=== PATIENT | male | born 1945 | race Caucasian/White ===

== ENCOUNTER → 2018-02-21 11:56 | Outpatient (CLI) | payer MEDICARE, SELFPAY ==
--- NOTE | 2018-02-21 | DI.MRI.S_ITS ---
PROCEDURE: MR SHOULDER RT WO CON INDICATIONS: DYSFUNCTION OF RIGHT ROTATOR CUFF TECHNIQUE: Noncontrast oblique coronal T2 fast spin echo with fat saturation, oblique sagittal T1 spin echo and T2 fast spin echo with fat saturation, axial T1 spin echo and T2 fast spin echo with fat saturation through the shoulder. COMPARISON: [facility], CR, XR SHOULDER 2+ VIEWS RIGHT, 02/04/2018, 11:45. FINDINGS: Image quality: Excellent. Rotator cuff: Supraspinatus tendinopathy, and partial-thickness low-grade bursal sided tear. There is also partial-thickness articular sided tear however no full-thickness defect is seen. The infraspinatus and teres minor appear intact. There is markedly thinned appearance of the subscapularis tendon and suggestive partial thickness articular sided tear for example image 14 series 7. This may be chronic. Bones and bursae: No bone marrow contusions or fractures. No acromioclavicular joint degeneration. The acromion demonstrates conventional anatomy, without an os acromiale. Mild subacromial-subdeltoid fluid is present. Capsule and soft tissues: Anteroinferior labrum is not well visualized. There is also thickening of the inferior glenohumeral ligament anterior band. Inferior and posterior labral tear. The long head of the biceps tendon is not well-visualized and may be ruptured. The rotator interval appears normal, without fibrosis. The coracohumeral ligament is normal in thickness. IMPRESSION: Supraspinatus tendinopathy with partial thickness bursal and articular sided tear. Partial-thickness articular sided tear of the subscapularis tendon. Long head biceps tendon not visualized and may be ruptured. Mild subacromial/subdeltoid bursitis. Circumferential labral tear involving the anterior, inferior and posterior segments, with associated sprain of the anterior band of the inferior glenohumeral ligament, although these findings demonstrate nonacute appearance. Please correlate clinically. Dictated by: Moshe Amador M.D. on 02/21/2018 at 14:49 Approved by: Moshe Amador M.D. on 02/21/2018 at 14:59
== END ==
PROVIDERS: Family Provider Family Medicine; PCP Family Medicine; Visit Provider Orthopaedic Surgery
DX: M75.111 Incomplete rotator cuff tear or rupture of right shoulder, not specified as traumatic (principal); M75.51 Bursitis of right shoulder; S43.401A Unspecified sprain of right shoulder joint, initial encounter
CPT/HCPCS: 73221

== ENCOUNTER → 2018-10-27 09:46 | Outpatient (CLI) | payer MEDICARE, SELFPAY ==
--- NOTE | 2018-10-27 09:50 | DI.RAD.S_ITS ---
PROCEDURE: XR CHEST 2V INDICATIONS: cough TECHNIQUE: 2 views of the chest were acquired. COMPARISON: None. FINDINGS: Surgical changes and devices: None. Lungs and pleura: Lungs are clear. No pleural effusions or pneumothorax. Mediastinum: Mediastinal contours are normal. Heart size is normal. Bones and chest wall: No suspicious bony abnormalities. Soft tissues appear unremarkable. IMPRESSION: No acute cardiopulmonary pathology. Dictated by: Roddy Callejas M.D. on 10/27/2018 at 9:59 Approved by: Roddy Callejas M.D. on 10/27/2018 at 10:00
== END ==
PROVIDERS: Visit Provider Physician Assistant
DX: R05 Cough (principal)
CPT/HCPCS: 71046

== ENCOUNTER → 2019-01-20 11:47 | Outpatient (CLI) | payer MEDICARE, SELFPAY ==
--- NOTE | 2019-01-20 11:52 | DI.RAD.S_ITS ---
PROCEDURE: XR TOE RT MIN 2V INDICATIONS: second toe pain TECHNIQUE: 3 views of the right 2nd toe. COMPARISON: [facility], , TOE MINIMUM 2 VIEWS LEFT, 08/01/2008, 15:10. FINDINGS: Bones: No displaced fracture or dislocation is identified involving the 2nd toe. No suspicious osseous lesions are appreciated. Severe degenerative changes of the 1st metatarsophalangeal joint are evident. There are prominent degenerative changes involving the midfoot joints. Soft tissues: No suspicious soft tissue densities. IMPRESSION: No acute fracture of the right 2nd toe. Dictated by: Bucky Mcintosh M.D. on 01/20/2019 at 11:26 Approved by: Bucky Mcintosh M.D. on 01/20/2019 at 11:37
== END ==
PROVIDERS: Visit Provider Physician Assistant
DX: M79.674 Pain in right toe(s) (principal)
CPT/HCPCS: 73660

== ENCOUNTER → 2021-06-23 09:32 | Outpatient (CLI) | payer OTHER, SELFPAY ==
[2021-06-23 10:34] LABS: Alanine Aminotransferase 17 IU/L (<50); Albumin 4.5 g/dL (3.5-5.0); Albumin Globulin Ratio 1.6 (1.0-2.8); Alkaline Phosphatase 50 U/L (38-126); Aspartate Aminotransferase 24 IU/L (17-59); BUN Creatinine Ratio 24.2 (6-22); Bilirubin Total 0.8 mg/dL (0.2-1.3); Blood Urea Nitrogen 24 mg/dL (9-20); Calcium 9.9 mg/dL (8.4-10.2); Carbon Dioxide 27 mmol/L (22-32); Chloride 101 mmol/L (98-107); Cholesterol 244 mg/dL (140-199); Estimated Glomerular Filt Rate > 60.0 mL/min (>60); Globulin 2.9 g/dL (1.7-4.1); Glucose 102 mg/dL (80-110); HDL Cholesterol 55 mg/dL (40-60); HEMOLYSIS < 15 (0-50); LDL Cholesterol Calculated 170 mg/dL (<100); Potassium 4.7 mmol/L (3.4-5.1); Sodium 139 mmol/L (137-145); Total Protein 7.4 g/dL (6.3-8.2); Triglycerides 93 mg/dL (35-150); Uric Acid 7.7 mg/dL (3.5-8.5)
[2021-06-28 06:36] LABS: Percent Free Testosterone 1.95 % (1.50-4.20); Testosterone Free 12.61 ng/dL (5.00-21.00); Testosterone Total 646.7 ng/dL (264.0-916.0)
== END ==
PROVIDERS: PCP Internal Medicine; Referring Provider Internal Medicine; Visit Provider Internal Medicine
DX: E78.2 Mixed hyperlipidemia (principal); M1A.9XX0 Chronic gout, unspecified, without tophus (tophi); N52.9 Male erectile dysfunction, unspecified
CPT/HCPCS: 36415; 80053; 80061; 84402; 84403; 84550

== ENCOUNTER → 2021-09-27 08:08 | Outpatient (CLI) | payer OTHER, SELFPAY ==
[2021-09-27 09:52] LABS: BUN Creatinine Ratio 22.9 (6-22); Blood Urea Nitrogen 22 mg/dL (9-20); Calcium 9.4 mg/dL (8.4-10.2); Carbon Dioxide 28 mmol/L (22-32); Chloride 104 mmol/L (98-107); Estimated Glomerular Filt Rate > 60.0 mL/min (>60); Glucose 97 mg/dL (80-110); HEMOLYSIS < 15 (0-50); Potassium 4.1 mmol/L (3.4-5.1); Sodium 138 mmol/L (137-145)
[2021-09-27 10:22] LABS: Prostate Specific Antigen Scrn 11.9 ng/mL (0.1-4.0)
== END ==
PROVIDERS: PCP Internal Medicine; Referring Provider Urology; Visit Provider Urology
DX: Z12.5 Encounter for screening for malignant neoplasm of prostate (principal); R31.29 Other microscopic hematuria
CPT/HCPCS: 36415; 80048; G0103

== ENCOUNTER → 2021-10-03 08:20 | Outpatient (CLI) | payer OTHER, SELFPAY ==
[2021-10-03 10:49] LABS: Prostate Specific Antigen 14.7 ng/mL (0.10-4.00)
== END ==
PROVIDERS: PCP Internal Medicine; Referring Provider Urology; Visit Provider Urology
DX: R97.20 Elevated prostate specific antigen [PSA] (principal)
CPT/HCPCS: 36415; 84153

== ENCOUNTER → 2021-10-05 10:43 | Outpatient (CLI) | payer OTHER, SELFPAY ==
--- NOTE | 2021-10-05 10:44 | DI.CT.S_ITS ---
PROCEDURE: CT ABDOMEN PELVIS WO/W CON INDICATIONS: Microscopic hematuria asymptomatic TECHNIQUE: Optional 5 mm thick noncontrast images acquired from the diaphragm to the symphysis pubis. After the administration of intravenous contrast, 5 mm thick images acquired from the diaphragm to the symphysis pubis after a 10-minute delay. 2 mm thick coronal and sagittal reformats were then performed of the kidneys and ureters. For radiation dose reduction, the following was used: automated exposure control, adjustment of mA and/or kV according to patient size. COMPARISON: None. FINDINGS: Image quality: Excellent. Lung bases: Lung bases are clear. Heart size is normal. Mitral annular calcification. Urinary system: Both kidneys are normal in size, without hydronephrosis or nephrolithiasis on pre-contrast images. No perinephric fat stranding. There is normal bilateral renal enhancement. Renal calyces appear normal in morphology when filled with contrast. Opacified portions of both ureters demonstrate normal caliber. The ureters are mostly opacified. No filling defect is seen. Bladder wall thickness is normal. No calcified bladder stones. Other solid organs: Liver is normal in size and enhancement. Gallbladder is unremarkable . Biliary system is non dilated. Pancreas enhances normally. Spleen is normal in size and enhancement. No adrenal nodules. Peritoneum and bowel: Bowel loops demonstrate normal wall thickness and caliber. Diverticulosis. Normal appendix. No free fluid or air. Nodes and vessels: No retroperitoneal or mesenteric adenopathy by size criteria. Aorta and inferior vena cava are normal in size. Abdominal wall: No ventral hernias. Pelvis: No pathologic free pelvic fluid. Prostatomegaly. Prostate calcifications. No definite inguinal hernias or adenopathy. Bones: No suspicious bony lesions. No vertebral body compression fractures. Moderate DDD. Mild scoliosis. IMPRESSION: 1. No kidney stones. No hydronephrosis. 2. No solid renal mass. No upper urinary tract filling defect identified. Dictated by: Ezequiel Pelletier M.D. on 10/05/2021 at 10:48 Approved by: Ezequiel Pelletier M.D. on 10/05/2021 at 10:58
== END ==
PROVIDERS: PCP Internal Medicine; Referring Provider Urology; Visit Provider Urology
DX: R31.29 Other microscopic hematuria (principal)
CPT/HCPCS: 74178

== ENCOUNTER → 2022-01-17 15:34 | Outpatient (CLI) | payer OTHER, SELFPAY ==
[2022-01-17 18:08] LABS: Prostate Specific Antigen 10.7 ng/mL (0.10-4.00)
== END ==
PROVIDERS: PCP Internal Medicine; Referring Provider Urology; Visit Provider Urology
DX: R97.20 Elevated prostate specific antigen [PSA] (principal); R39.9 Unspecified symptoms and signs involving the genitourinary system; R31.29 Other microscopic hematuria; N52.9 Male erectile dysfunction, unspecified
CPT/HCPCS: 36415; 81002; 84153; 99213

== ENCOUNTER → 2022-01-31 08:59 | Outpatient (CLI) | payer OTHER, SELFPAY ==
[2022-01-31 10:36] LABS: Influenza A - CEPHEID Flu A NEGATIVE (NEGATIVE); Influenza B - CEPHEID Flu B NEGATIVE (NEGATIVE)
[2022-01-31 10:37] LABS: COVID-19 CEPHEID PCR (VTM/NP) Negative (Negative)
== END ==
PROVIDERS: PCP Internal Medicine; Visit Provider Physician Assistant
DX: R05.9 Cough, unspecified (principal)
CPT/HCPCS: 0240U

== ENCOUNTER → 2022-02-28 11:23 | Outpatient (CLI) | payer OTHER, SELFPAY ==
[2022-03-01 06:07] LABS: PSA Free % 7.2 % (.); PSA, Total 13.1 ng/mL (0.0-4.0)
== END ==
PROVIDERS: PCP Internal Medicine; Referring Provider Urology; Visit Provider Urology
DX: R97.20 Elevated prostate specific antigen [PSA] (principal)
CPT/HCPCS: 36415; 84153; 84154

== ENCOUNTER → 2022-03-02 14:50 | Outpatient (CLI) | payer OTHER, SELFPAY ==
--- NOTE | 2022-03-02 14:52 | DI.RAD.S_ITS ---
PROCEDURE: XR CHEST 2V INDICATIONS: cough TECHNIQUE: 2 views of the chest were acquired. COMPARISON: [facility], CR, XR CHEST 2V, 10/27/2018, 9:51. FINDINGS: Surgical changes and devices: None. Lungs and pleura: Slightly low lung volumes. Minor bibasilar opacities, left greater than right suggesting atelectatic changes. Mediastinum: Normal heart size with a tortuous descending thoracic aortic course. Normal central vasculature. Bones and chest wall: No suspicious bony abnormalities. Soft tissues appear unremarkable. IMPRESSION: Low lung volumes and minor bibasilar atelectatic changes or scar. Dictated by: Awa Smith M.D. on 03/02/2022 at 15:50 Approved by: Awa Smith M.D. on 03/02/2022 at 15:52
== END ==
PROVIDERS: PCP Internal Medicine; Referring Provider Internal Medicine; Visit Provider Internal Medicine
DX: R05.9 Cough, unspecified (principal)
CPT/HCPCS: 71046

== ENCOUNTER → 2022-03-08 10:56 | Outpatient (CLI) | payer OTHER, SELFPAY | PROVIDERS: PCP Internal Medicine; Visit Provider Urology | DX: R30.0 Dysuria (principal); R97.20 Elevated prostate specific antigen [PSA]; R82.81 Pyuria; R39.9 Unspecified symptoms and signs involving the genitourinary system; N52.9 Male erectile dysfunction, unspecified; R53.81 Other malaise | CPT/HCPCS: 81002; 87086; 99214 ==

== ENCOUNTER → 2022-03-29 09:56 | Outpatient (CLI) | payer OTHER, SELFPAY | PROVIDERS: PCP Internal Medicine; Visit Provider Urology | DX: R31.29 Other microscopic hematuria (principal); R97.20 Elevated prostate specific antigen [PSA]; R39.9 Unspecified symptoms and signs involving the genitourinary system; N52.9 Male erectile dysfunction, unspecified; N30.01 Acute cystitis with hematuria; R82.81 Pyuria | CPT/HCPCS: 81002; 87086; 99214 ==

== ENCOUNTER → 2022-04-03 12:23 | Outpatient (CLI) | payer OTHER, SELFPAY ==
[2022-04-03 13:38] LABS: Add Manual Diff / Slide Review NO; Basophils Absolute Auto 0 /uL (0-100); Basophils Percent Auto 0.5 % (0-2); Eosinophils Absolute Auto 200 /uL (0-450); Eosinophils Percent Auto 2.6 % (2-4); Hematocrit 39.1 % (41-53); Hemoglobin 13.3 g/dL (13.5-17.5); Lymphocytes Absolute Auto 600 /uL (1100-4500); Lymphocytes Percent Auto 8.7 % (25-40); Mean Corpuscular Hemoglobin 31.5 PG (26-34); Mean Corpuscular Volume 92.7 fL (80-100); Monocytes Absolute Auto 800 /uL (0-900); Monocytes Percent Auto 10.5 % (3-14); Neutrophils Absolute Auto 5600 /uL (1500-7000); Neutrophils Percent Auto 77.7 % (50-75); Platelet Count 142 X10^3/uL (150-400); Red Blood Cell Count 4.22 X10^6/uL (4.5-5.9); Red Cell Distribution Width 13.4 % (11.6-14.8); White Blood Cell Count 7.2 X10^3/uL (4.5-11.0)
[2022-04-03 13:54] LABS: Alanine Aminotransferase 20 IU/L (<50); Albumin 4.5 g/dL (3.5-5.0); Albumin Globulin Ratio 1.2 (1.0-2.8); Alkaline Phosphatase 55 U/L (38-126); Aspartate Aminotransferase 25 IU/L (17-59); BUN Creatinine Ratio 27.2 (6-22); Bilirubin Total 1.2 mg/dL (0.2-1.3); Blood Urea Nitrogen 25 mg/dL (9-20); Calcium 9.5 mg/dL (8.4-10.2); Carbon Dioxide 28 mmol/L (22-32); Chloride 102 mmol/L (98-107); Estimated Glomerular Filt Rate > 60 mL/min (>60); Globulin 3.7 g/dL (1.7-4.1); Glucose 100 mg/dL (80-110); HEMOLYSIS < 15 (0-50); Potassium 4.5 mmol/L (3.4-5.1); Sodium 140 mmol/L (137-145); Total Protein 8.2 g/dL (6.3-8.2)
[2022-04-03 16:02] LABS: Free T4, Direct Thyroxine 1.45 ng/dL (0.78-2.19)
[2022-04-03 16:16] LABS: Thyroid Stimulating Hormone 1.56 uIU/mL (0.47-4.68)
== END ==
PROVIDERS: PCP Internal Medicine; Referring Provider Internal Medicine; Visit Provider Internal Medicine
DX: E78.2 Mixed hyperlipidemia (principal); I10 Essential (primary) hypertension; R06.00 Dyspnea, unspecified
CPT/HCPCS: 36415; 80053; 84439; 84443; 85025

== ENCOUNTER → 2022-05-03 10:23 | Outpatient (CLI) | payer OTHER, SELFPAY ==
--- NOTE | 2022-05-03 10:25 | DI.ECHO.S_ITS ---
[facility] +---------+ Hospital +---------+ : : [address] : : : : [id number] : : : : Phone: [phone]+ Echocardiogram Report + + :Name: FER JOHNSON I Study Date: 05/03/2022 Height: 69 in : :[facility] ReadingLocation: Weight: 180 lb : : Gender: Male BSA: 2.0 m2 : :: 1945 Age: 76 yrs BP: 136/95 mmHg: :Reason For Study: Murmur : :Ordering Physician: BENIGNO, : :DELLA Lazo Performed By: Ralph Nava : :Referring: DELLA PELAEZ : + + Interpretation Summary 1) Normal left ventricular thickness, size, wall motion, and systolic function (EF 60-65%). 2) The right ventricle is mildly dilated. Right ventricular systolic function is mildly reduced. 3) Both atria are severely dilated. 4) There is mild mitral valve prolapse of the posterior leaflet. 5) There is probable severe mitral regurgitation that is directed anteriorly. Eccentric jet makes it difficult to assess severity. 6) No prior Echo avaliable for comparison. Recommend cardiology consult. Procedure: A two-dimensional transthoracic echocardiogram with color flow and Doppler was performed. The study quality was technically adequate. There is no prior echocardiogram noted for this patient. Left Ventricle: The left ventricle is normal in size and wall thickness. Left ventricular systolic function is normal. The ejection fraction is estimated to be 60-65%. There are no focal wall motion abnormalities. Diastolic function could not be accurately assessed due to unobtainable data. Right Ventricle: The right ventricle is mildly dilated. Right ventricular systolic function is mildly reduced. Atria: Both atria are severely dilated. The interatrial septum grossly appears intact with no obvious evidence for an atrial septal defect. Mitral Valve: There is mild mitral annular calcification. The mitral valve leaflets appear mildly thickened, but open well. There is mild mitral valve prolapse. There is prolapse of the posterior mitral valve leaflet(s). There is severe mitral regurgitation. The mitral regurgitant jet is anteriorly directed, which is consistent with posterior leaflet pathology. Aortic Valve: There is mild aortic valve sclerosis. There is mild aortic regurgitation. Tricuspid Valve: The tricuspid valve is normal in structure and function. There is mild tricuspid regurgitation. The right ventricular systolic pressure is estimated to be at least 37 mmHg based on an estimated right atrial pressure of 8 mm Hg. Pulmonic Valve: The pulmonic valve is normal in structure and function. There is mild pulmonic regurgitation. Great Vessels: The aortic root is normal size. The ascending aorta is mildly enlarged. The IVC is of normal diameter and collapses less than 50% with a sniff. This suggests a right atrial pressure of 8 mm Hg. Pericardium/ Pleura There is no pericardial effusion. There is no pleural effusion. MMode/2D Measurements & Calculations LVIDd: 5.1 cm LVOT diam: 2.1 cm LVIDs: 3.3 cm Ao root diam: 3.7 cm FS: 35.3 % asc Aorta Diam: 3.7 cm IVSd: 1.1 cm LVPWd: 1.0 cm LV doshi. diameter/BSA (cm/m^2): 2.6 LV sys. diameter/BSA (cm/m^2): 1.7 LA dimension: 4.6 cm RA long axis: 7.4 cm LA A2 area: 35.4 cm2 IVC diam: 2.1 cm LA A4 area: 34.8 cm2 LA length (vol): 6.9 cm LA vol: 150.7 ml LA vol index: 76.3 ml/m2 TAPSE_phl: 1.5 cm Doppler Measurements & Calculations Ao V2 max: 153.0 cm/sec LVOT Max Pa: 68.5 cm/sec Ao V2 mean: 107.0 cm/sec LV V1 max P.9 mmHg Ao max P.0 mmHg LV V1 VTI: 12.0 cm Ao mean P.0 mmHg JAY JAY(I,D): 1.7 cm2 Ao V2 VTI: 25.0 cm JAY JAY(V,D): 1.6 cm2 sev ratio: 0.48 JAY JAY indexed to BSA (cm^2/m^2): 0.84 TR max pa: 268.0 cm/sec SV(LVOT): 41.6 ml TR max P.7 mmHg AV VR_phl: 0.45 JAY JAY(VTI)/BSA_phl: 0.84 Reading Physician:04:[id number] PM
== END ==
PROVIDERS: PCP Internal Medicine; Referring Provider Internal Medicine; Visit Provider Internal Medicine
DX: I08.3 Combined rheumatic disorders of mitral, aortic and tricuspid valves (principal); R01.1 Cardiac murmur, unspecified; R06.00 Dyspnea, unspecified; I10 Essential (primary) hypertension; E78.2 Mixed hyperlipidemia
CPT/HCPCS: 93306

== ENCOUNTER → 2022-06-21 14:46 | Outpatient (CLI) | payer OTHER, SELFPAY ==
[2022-06-23 08:32] LABS: PSA Free % 8.2 % (.)
== END ==
PROVIDERS: PCP Internal Medicine; Referring Provider Urology; Visit Provider Urology
DX: R97.20 Elevated prostate specific antigen [PSA] (principal)
CPT/HCPCS: 36415; 84153; 84154

== ENCOUNTER → 2022-07-04 08:09 | Outpatient (CLI) | payer OTHER, SELFPAY | PROVIDERS: PCP Internal Medicine; Visit Provider Urology | DX: R31.29 Other microscopic hematuria (principal); R97.20 Elevated prostate specific antigen [PSA]; N52.9 Male erectile dysfunction, unspecified; R39.9 Unspecified symptoms and signs involving the genitourinary system; Z87.440 Personal history of urinary (tract) infections | CPT/HCPCS: 81002; 87086; 99214 ==

== ENCOUNTER → 2022-07-18 15:17 | Outpatient (CLI) | payer OTHER, SELFPAY ==
--- NOTE | 2022-07-18 15:19 | DI.MRI.S_ITS ---
PROCEDURE: MR PELIS WO/W CON INDICATIONS: Prostate volume TECHNIQUE: Coronal HASTE, axial T1 FSE with fat saturation, 3-plane nonbreath-hold T2 FSE. After the administration of contrast, dynamic axial, delayed axial and coronal VIBE or 2-D FLASH with fat saturation through the pelvis. Optional diffusion weighted imaging and ADC may be performed. COMPARISON: None. FINDINGS: Image quality: Diffusion weighted and dynamic contrast enhanced images are diagnostic. Prostate: 4.1 x 4.4 x 3.4 cm. Estimated volume is 32 cc. Transitional zone heterogenous nodules are present, either well encapsulated or mostly encapsulated, compatible with PI-RADS 1 or 2 likely BPH nodules. Mildly T2 hypointense heterogenous striated appearance of the peripheral zone is commonly seen with current or prior prostatitis, PI-RADS 2. These findings can obscure small cancers. Left apex and mid gland hypointense lesion with diffusion restriction and early contrast enhancement measuring 16 x 18 x 17 mm. DWI score 5. T2 score 5. DCE positive. There is also suspected extracapsular extension (5/14). PI-RADS 5. Genitourinary system: Bladder is unremarkable. Bowel and peritoneum: Colonic diverticula. There is rectal gas. Nodes and vessels: No pathologic lymph nodes by size criteria. Pelvic lymph nodes are indeterminate in the setting of suspected prostate malignancy. Prominent pelvic floor venous collaterals are present. Soft tissues: Bilateral fat containing inguinal hernias. Bones: No acute or suspicious osseous abnormality. IMPRESSION: PI-RADS 5 lesion in the left mid and apex peripheral zone with suspected extracapsular extension. Dictated by: Joselo Mesa M.D. on 07/18/2022 at 16:51 Approved by: Joselo Mesa M.D. on 07/18/2022 at 16:58
== END ==
PROVIDERS: PCP Internal Medicine; Referring Provider Urology; Visit Provider Urology
DX: N40.2 Nodular prostate without lower urinary tract symptoms (principal); R97.20 Elevated prostate specific antigen [PSA]; R39.9 Unspecified symptoms and signs involving the genitourinary system; K40.20 Bilateral inguinal hernia, without obstruction or gangrene, not specified as recurrent
CPT/HCPCS: 72197; A9579

== ENCOUNTER → 2022-11-15 10:33 | Outpatient (CLI) | payer OTHER, SELFPAY ==
[2022-11-15 11:22] LABS: Add Manual Diff / Slide Review NO; Basophils Absolute Auto 100 /uL (0-100); Basophils Percent Auto 0.5 % (0-2); Eosinophils Absolute Auto 100 /uL (0-450); Hemoglobin 13.5 g/dL (13.5-17.5); Lymphocytes Absolute Auto 1000 /uL (1100-4500); Mean Corpuscular HGB Conc 33.8 % (30-36); Mean Corpuscular Hemoglobin 32.1 PG (26-34); Mean Corpuscular Volume 95.1 fL (80-100); Monocytes Absolute Auto 1000 /uL (0-900); Monocytes Percent Auto 10.4 % (3-14); Neutrophils Absolute Auto 7800 /uL (1500-7000); Neutrophils Percent Auto 78.1 % (50-75); Platelet Count 135 X10^3/uL (150-400); Red Blood Cell Count 4.21 X10^6/uL (4.5-5.9); Red Cell Distribution Width 13.9 % (11.6-14.8)
[2022-11-15 11:43] LABS: Erythrocyte Sedimentation Rate 37 MM/HR (0-15)
[2022-11-15 12:15] LABS: BUN Creatinine Ratio 24.7 (6-22); Blood Urea Nitrogen 24 mg/dL (9-20); C-Reactive Protein Quant 7.9 mg/dL (<1.0); Calcium 9.3 mg/dL (8.4-10.2); Carbon Dioxide 27 mmol/L (22-32); Chloride 102 mmol/L (98-107); Estimated Glomerular Filt Rate > 60 mL/min (>60); Glucose 103 mg/dL (80-110); HEMOLYSIS < 15 (0-50); Potassium 4.1 mmol/L (3.4-5.1); Sodium 138 mmol/L (137-145); Uric Acid 10.1 mg/dL (3.5-8.5)
== END ==
PROVIDERS: PCP Internal Medicine; Referring Provider Internal Medicine; Visit Provider Internal Medicine
DX: I10 Essential (primary) hypertension (principal); M15.0 Primary generalized (osteo)arthritis; M1A.00X0 Idiopathic chronic gout, unspecified site, without tophus (tophi)
CPT/HCPCS: 36415; 80048; 84550; 85025; 85651; 86140

== ENCOUNTER → 2022-11-29 12:27 | Outpatient (CLI) | payer OTHER, SELFPAY ==
[2022-11-29 14:06] LABS: BUN Creatinine Ratio 28.7 (6-22); Blood Urea Nitrogen 25 mg/dL (9-20); Calcium 9.6 mg/dL (8.4-10.2); Carbon Dioxide 31 mmol/L (22-32); Chloride 97 mmol/L (98-107); Estimated Glomerular Filt Rate > 60 mL/min (>60); Glucose 101 mg/dL (80-110); HEMOLYSIS < 15 (0-50); Magnesium 2.4 mg/dL (1.6-2.3); Potassium 4.7 mmol/L (3.4-5.1); Sodium 136 mmol/L (137-145)
== END ==
PROVIDERS: PCP Internal Medicine; Referring Provider Physician Assistant Medical; Visit Provider Physician Assistant Medical
DX: Z95.2 Presence of prosthetic heart valve (principal)
CPT/HCPCS: 36415; 80048; 83735

== ENCOUNTER → 2022-12-20 08:11 | Outpatient (CLI) | payer OTHER, SELFPAY ==
[2022-12-20 09:41] LABS: Add Manual Diff / Slide Review NO; Basophils Absolute Auto 0 /uL (0-100); Basophils Percent Auto 0.6 % (0-2); Eosinophils Absolute Auto 400 /uL (0-450); Eosinophils Percent Auto 5.4 % (2-4); Hematocrit 34.3 % (41-53); Hemoglobin 11.4 g/dL (13.5-17.5); Lymphocytes Absolute Auto 1200 /uL (1100-4500); Lymphocytes Percent Auto 15.5 % (25-40); Mean Corpuscular HGB Conc 33.2 % (30-36); Mean Corpuscular Hemoglobin 30.6 PG (26-34); Mean Corpuscular Volume 92.1 fL (80-100); Monocytes Absolute Auto 800 /uL (0-900); Monocytes Percent Auto 10.6 % (3-14); Neutrophils Absolute Auto 5400 /uL (1500-7000); Neutrophils Percent Auto 67.9 % (50-75); Platelet Count 204 X10^3/uL (150-400); Red Blood Cell Count 3.72 X10^6/uL (4.5-5.9); Red Cell Distribution Width 14.8 % (11.6-14.8); White Blood Cell Count 7.9 X10^3/uL (4.5-11.0)
[2022-12-20 09:45] LABS: Alanine Aminotransferase 26 IU/L (<50); Albumin 3.8 g/dL (3.5-5.0); Albumin Globulin Ratio 1.2 (1.0-2.8); Alkaline Phosphatase 95 U/L (38-126); Aspartate Aminotransferase 27 IU/L (17-59); BUN Creatinine Ratio 25.4 (6-22); Bilirubin Total 0.7 mg/dL (0.2-1.3); Blood Urea Nitrogen 18 mg/dL (9-20); Calcium 9.4 mg/dL (8.4-10.2); Carbon Dioxide 27 mmol/L (22-32); Chloride 101 mmol/L (98-107); Cholesterol 157 mg/dL (140-199); Estimated Glomerular Filt Rate > 60 mL/min (>60); Globulin 3.3 g/dL (1.7-4.1); Glucose 90 mg/dL (80-110); HDL Cholesterol 43 mg/dL (40-60); HEMOLYSIS < 15 (0-50); LDL Cholesterol Calculated 94 mg/dL (<100); Potassium 4.4 mmol/L (3.4-5.1); Sodium 136 mmol/L (137-145); Total Protein 7.1 g/dL (6.3-8.2); Triglycerides 101 mg/dL (35-150)
== END ==
PROVIDERS: PCP Internal Medicine; Referring Provider Nurse Practitioner Acute Care; Visit Provider Nurse Practitioner Acute Care
DX: E78.5 Hyperlipidemia, unspecified (principal); I48.92 Unspecified atrial flutter; I48.19 Other persistent atrial fibrillation
CPT/HCPCS: 36415; 80053; 80061; 85025

== ENCOUNTER 2023-04-04 10:15 | Outpatient (RCR) | payer OTHER, SELFPAY | END 2023-04-04 12:15 | LOC: CAR 10:15 | PROVIDERS: PCP Internal Medicine; Referring Provider Thoracic Surgery (Cardiothoracic Vascular Surgery); Visit Provider Thoracic Surgery (Cardiothoracic Vascular Surgery) | DX: Z95.2 Presence of prosthetic heart valve (principal) | CPT/HCPCS: 93798 ==

== ENCOUNTER → 2023-05-28 11:57 | Outpatient (CLI) | payer OTHER, SELFPAY ==
[2023-05-28 13:36] LABS: BUN Creatinine Ratio 26.5 (6-22); Blood Urea Nitrogen 26 mg/dL (9-20); Carbon Dioxide 25 mmol/L (22-32); Chloride 104 mmol/L (98-107); Estimated Glomerular Filt Rate > 60 mL/min (>60); Glucose 109 mg/dL (80-110); HEMOLYSIS < 15 (0-50); Potassium 4.5 mmol/L (3.4-5.1); Sodium 140 mmol/L (137-145)
== END ==
PROVIDERS: PCP Internal Medicine; Referring Provider Urology; Visit Provider Urology
DX: C61 Malignant neoplasm of prostate (principal)
CPT/HCPCS: 36415; 80048

== ENCOUNTER → 2023-06-05 10:13 | Outpatient (CLI) | payer OTHER, SELFPAY ==
--- NOTE | 2023-06-05 | DI.NM.S_ITS ---
PROCEDURE: NM BONE SCAN WHOLE BODY RADIOPHARMACEUTICAL: 22.0 mCi Tc-99m MDP IV. INDICATIONS: newly diagnosed prostate cancer TECHNIQUE: Delayed whole-body scintigrams were obtained approximately 3-4 hours after intravenous injection of radiotracer. Anterior and posterior views were acquired from vertex to feet. Additional left and right oblique views of the pelvis were obtained. COMPARISON: [facility], CT, CT ABDOMEN PELVIS W CON, 06/05/2023, 11:45. FINDINGS: There is increased activity in the greater trochanteric areas bilaterally, most likely secondary to enthesopathy. Intensity increased activity in sternum is likely secondary to sternotomy. No lesions are identified in skull, clavicles, scapulae, ribs, bony pelvis, and visualized shafts of the long bones. There are foci of increased uptake in thoracic and lumbar spine most likely secondary to degenerative disc and facet disease; early metastasis to spine could be obscured by degenerative changes. There are foci of increased periarticular activity involving shoulders, sternoclavicular joints, wrists, hands, SI joints, knees, ankles and feet, compatible with degenerative/arthritic changes. IMPRESSION: 1. No definitive scintigraphic findings to suggest osseous metastasis. Dictated by: Suzan Pena M.D. on 06/05/2023 at 16:14 Approved by: Suzan Pena M.D. on 06/06/2023 at 6:37
--- NOTE | 2023-06-05 10:21 | DI.CT.S_ITS ---
PROCEDURE: CT ABDOMEN PELVIS W CON INDICATIONS: New diagnosis prostate cancer TECHNIQUE: After the administration of oral and intravenous contrast, axial sections were acquired from the lung bases to the pubic symphysis. Coronal and sagittal reformats were performed. For radiation dose reduction, the following was used: automated exposure control, adjustment of mA and/or kV according to patient size. COMPARISON:None. FINDINGS: Image quality: Excellent. Lung bases: Lung bases are clear. Heart size is normal. Coronary artery calcifications. Solid organs: Liver: The liver has no mass or intrahepatic biliary ductal dilatation. The portal vein and hepatic veins are patent. Biliary: The gallbladder has no gallstones, pericholecystic fluid, gallbladder wall thickening, or surrounding inflammatory change. Pancreas: The pancreas has no mass or ductal dilatation. There is no surrounding inflammation. Spleen: Normal size. There are no masses. Adrenals: No hypertrophy or nodules. Kidneys: No obstructive calculus or hydronephrosis. No solid mass. No cystic mass. Peritoneum and bowel: The distal esophagus and stomach are normal. The small bowel has a normal caliber and appearance. The terminal ileum is normal. The large bowel has diverticulosis without evidence of acute diverticulitis. No free fluid or air. Nodes and vessels: No retroperitoneal or mesenteric adenopathy by size criteria. The aorta has atherosclerosis with no aneurysmal dilatation. Miscellaneous: No abdominal wall mass or hernia. Fat containing inguinal hernias bilaterally. PELVIS: Genitourinary: The bladder has no wall thickening or mass. The prostate is enlarged measuring 5.4 x 4.5 cm with calcifications. No bladder calcifications. Bones: Degenerative changes with no focal abnormality. There is S shaped curvature of the lumbar spine. No vertebral body compression fractures. IMPRESSION: 1. No evidence of metastatic disease or adenopathy. 2. Diverticulosis with no evidence of acute diverticulitis. Dictated by: Deacon Catalan M.D. on 06/05/2023 at 16:36 Approved by: Deacon Catalan M.D. on 06/05/2023 at 16:49
--- OUTSIDE RECORDS SUMMARY | 2023-06-21 15:05 | XMS_ITS | Referral Summary ---
Author Name Unknown Organization [facility] Address [address] [place] [address] Care Team Providers Care Licensed Investment Sales Assistant Name Role Phone Reyna Denis MD Unavailable [phone] Fausto Looney MD Primary Care Provider Reason for Referral * Rehab (Routine) - In Process Specialty Diagnoses / Procedures Referred By Justin t Referred To Contact Diagnoses S/P MVR (mitral valve replacement) Mray Mcdonough PA-C 1960 [facility] [id number] [place] [address] [facility] [address], [place] [address] Referral ID Status Reason Start Date Expiration Date Visits Requested Visits Authorized [id number] In Process Physical Therapy 11/23/2022 11/23/2023 1 1 Scheduling Instructions Referral to: Non- Medicine Cardiac Rehab: Patient Preference (POS [id number]) ----Please be aware that while I, as your health care provider, have identified this referral as medically indicated, I cannot guarantee your insurance plan will cover it. I recommend you contact your insurance carrier to make sure this is a covered service they will pay for. Reason for Visit * Reason Onset Date Comments Surgical Followup 11/23/2022 Encounter Details Date Type Department Care Team Description 11/23/2022 Telephone [facility] [address] [facility], [address] [place], [place] [id number] Jony Hawkins MD [address] [facility] [id number] [place] [address] Surgical Followup Allergies Active Allergy Reactions Severity Noted Date Comments Hydrocodone GI:Nausea/vomiting 05/21/2022 Hydrocodone-Acetaminophen GI:Nausea/vomiting Nausea and vomiting Monosodium Glutamate GI:Nausea/vomiting 022 Pollen Extract Other 05/21/2022 Sulfa Antibiotics Skin: Rash Low 05/21/2022 documented as of this encounter (statuses as of 01/09/2023) Medications Medication Sig Dispensed Refills Start Date End Date Status albuterol HFA 108 (90 Base) MCG/ACT inhaler Inhale 2 puffs by mouth as needed. 0 Active colchicine 0.6 MG tablet Take 1 tablet (0.6 mg) by mouth daily as needed (As needed for gout flareups.). 0 Active metoprolol succinate ER 50 MG 24 hr tablet Take 1 tablet (50 mg) by mouth daily. 0 07/14/2022 Active rosuvastatin 5 MG tablet Take 1 tablet (5 mg) by mouth at bedtime. 30 tablet 11 08/24/2022 4 Active acetaminophen 500 MG tablet Take 2 tablets (1,000 mg) by mouth every 6 hours as needed for pain. 0 11/22/2022 Active aspirin 81 MG EC tablet Take 1 tablet (81 mg) by mouth daily. 30 tablet 0 11/22/2022 Active multivitamin iron-folic acid 27-1 mg tablet Take 1 tablet by mouth daily. 30 tablet 0 11/22/2022 Active methocarbamol 500 MG tablet Take 1 tablet (500 mg) by mouth every 6 hours as needed for muscle spasms. 20 tablet 0 11/22/2022 Active Additional Information Patient not taking.Reason: Other, Reported on 11/23/2022 apixaban 5 MG tablet Take 0.5 tablets (2.5 mg) by mouth 2 times a day. 0 11/22/2022 3 Discontinue d(Reorder) furosemide 20 MG tablet Take 40mg (2 tablets) twice a day for 7 days (11/22-11/28) then 40mg (2 tablets) daily until follow up visit with cardiac surgery clinic. 0 11/22/2022 3 Discontinue d(Therapy completed/n o longer indicated) magnesium oxide 400 MG tablet Take 1 tablet (400 mg) by mouth 2 times a day for 7 days, THEN 1 tablet (400 mg) daily for 15 days. While taking furosemide (lasix). 29 tablet 0 11/22/2022 3 Discontinue d(Therapy completed/n o longer indicated) potassium chloride ER 20 MEQ ER tablet Take 2 tablets (40 mEq) by mouth 2 times a day for 7 days, THEN 2 tablets (40 mEq) daily for 15 days. While taking furosemide (lasix). 58 tablet 0 11/22/2022 3 Discontinue d(Med list cleanup) polyethylene glycol 3350 17 GM/SCOOP oral powder Take 17 g by mouth daily as needed for constipation. Fill cap with powder to the 17 gram donnie and dissolve in 4 to 8 ounces of water. 225 g 0 11/22/2022 3 Discontinue d(Med list cleanup) pantoprazole 40 MG EC tablet Take 1 tablet (40 mg) by mouth daily on an empty stomach. 30 tablet 0 11/22/2022 3 Discontinue d(Med list cleanup) documented as of this encounter (statuses as of 01/09/2023) Active Problems Problem Noted Date Stress hyperglycaemia 11/18/2022 Acute postoperative pain 11/18/2022 On apixaban therapy 11/18/2022 Mitral valve insufficiency, unspecified etiology 11/16/2022 S/P MVR (mitral valve replacement) 11/16 S/P TVR (tricuspid valve repair) 023 S/P placement of cardiac pacemaker 11/16 Right ventricular dysfunction 11/16/2022 Coronary artery disease invo lving mary's igloo coronary artery of mary's igloo heart without angina pectoris 09/19/2022 Persistent atrial fibrillation Nonrheumatic mitral valve regurgitation 09/19/2022 documented as of this encounter (statuses as of 01/09/2023) Social History Tobacco Use Types Packs/Day Years Used Date Smoking Tobacco: Never Smokeless Tobacco: Never Alcohol Use Standard Drinks/Week Comments Not Currently 0 (1 standard drink = 0.6 oz pur e alcohol) Sex Assigned at Date Recorded Male 09/17/2022 9:[address] COVID-19 Exposure Response Date Recorded In the last 10 days, have yo u been in contact with someone who was confirmed or suspected to have Coronavirus/COVID-19? No / Unsure 11/13/2022 11:50 AM PDT documented as of this encounter Miscellaneous Notes * Telephone Encounter - Mary Mcdonough PA-C - 11/30/2022 12:01 PM PDT As along as no cough with eating and swallowing- signs of aspiration I see as well no fever. Not concerned about outpatient BMP as had labs done when seen in ER- no concerns Recommendations: Continue to follow sternal precautions and monitoring vital signs, Agree with cough drops * Telephone Encounter - Shakeel Gomez RN - 11/30/2022 8:48 AM PDT Nature of Call: Post DC call day 7 S/P: s/p bioMVR, TV repair, LAAC, PVI, and PPM ([place], 11/16/22) VS: BP 110/56 HR 80 Temp 97.7F Weight 171 lbs Denies SOB, edema, dizziness, and palpitations. Has dry cough that occurs mostly when he starts to talk; once again denies palpitations. This started on Saturday. Incision healing well. Pain in controlled. Has not needed PRN medications, heating pad. Activity: Walking multiple times daily. Tolerating well. No sleep issues. GI/ no issues, appetite better Concerns: patient/spouse concerned about the dry persistent cough. Patient not on ELI-inhibitor. Plan: Practice gentle voice rest and use soothing cough drops PRN until coughing sensation subsides. Notify us if coughing is worse. Patient will continue to monitor VS and call with concerns as per DC teaching. F/u apt: Cardiology appointment Saturday with Dr. Denis around 10AM. CTS f/u apt made with Cardiac Surgery [facility] on 12/11/22 at 4:30PM. * Addendum Note - Jeremie Hernandez PA-C - 11/29/2022 11:47 AM PDTAddended by: JEREMIE HERNANDEZ on: 11/29/2022 11:47 AM Modules accepted: Orders * Telephone Encounter - Jeremie Hernandez PA-C - 11/29/2022 11:46 AM PDT Orders placed * Telephone Encounter - Rosa Isela Santiago RN - 11/29/2022 11:43 AM PDT Patient attempting to get BMP and Mag drawn per Daiana CASTANEDA, but the lab order slip is incomplete. Please place new external BMP and Mag lab order so patient can get labs drawn. * Telephone Encounter - Alfreda Butler RN - 11/26/2022 1:34 PM PDT Received VM from [place] regarding concerns of dry cough. Pt and states cough was present prior to surgery. Started about 9 months ago. Couldn't even talk. States it improved after being started on lasix. Cough started again since being discharged home. Pt denies any fever or S&S of cold, flu or COVID. Denies SOB. Reports has not been using IS much. Ensured pt cough most likely returned due to fluid overload and small right pleural effusion and should improve after lasix prescription completed. Instructed pt to use IS, continue to monitor for signs of respiratory illness and to continue to take lasix as prescribed. Pt and verbalized understanding. * Addendum Note - Mary Mcdonough PA-C - 11/23/2022 3:07 PM PDTAddended by: MARY MCDONOUGH on: 11/23/2022 03:07 PM Modules accepted: Orders * Telephone Encounter - Mary Mcdonough PA-C - 11/23/2022 3:07 PM PDT ordered CR * Telephone Encounter - Milly Viera RN - 11/23/2022 1:13 PM PDT Phone call to patient and spouse informing them that ok to stop taking the pantoprazole but advise that they follow up with GI or PCP about the esophageal stricture. Unable to reach them, left a VM with call back instructions. * Telephone Encounter - Mary Mcdonough PA-C - 11/23/2022 12:37 PM PDT patient may stop pantoprazole Did he get a visit scheduled for GI?--if not he should follow up with PCP and they can refer * Telephone Encounter - Milly Viera RN - 11/23/2022 8:10 AM PDT Surgery: 11/16/22 Dr. Hawkins ?? 1. ??Epiaortic ultrasound scanning. 2. ??Institution of cardiopulmonary bypass. 3. ??Maze atrial fibrillation ablation procedure (pulmonary vein isolation with radiofrequency AtriCure device, left atrial appendage clipping with a 40 mm AtriClip AtriCure device). 4. ??Resection of left ventricular mass (calcification), extensive, with CUSA device. 5. ??Mitral valve replacement with an Caban Epic +31 mm bioprosthetic valve (serial #[id number]). 6. ??Tricuspid valve repair with an Fournier Wit studiociences C-shaped incomplete ring (size 28 mm, model #6200, serial #[id number]). 7. ??Placement of a right ventricular permanent epicardial lead with electrophysiological testing and a permanent pacemaker Assurity MRI pulse generator ([id number], serial #[id number]). 8. ??Placement of a left common femoral A-line for hemodynamic monitoring. DC to home on 11/22/22 Admission Weight: (kg/lbs) - 84 KG, 185 lb Discharge weight:: (kg/lbs) - 87 kg, 191 lb Current Weight: (kg/lbs) - 180 lb on home scale Medications are reviewed/reconciled Yes (x) No (_) Discharge Medications: START taking these medications ?? Details acetaminophen 500 MG tablet Take 2 tablets (1,000 mg) by mouth every 6 hours as needed for pain. ?? aspirin 81 MG EC tablet Take 1 tablet (81 mg) by mouth daily. Qty: 30 tablet, Refills: 0 ?? magnesium oxide 400 MG tablet Take 1 tablet (400 mg) by mouth 2 times a day for 7 days, THEN 1 tablet (400 mg) daily for 15 days. While taking furosemide (lasix). Qty: 29 tablet, Refills: 0 ?? methocarbamol 500 MG tablet Take 1 tablet (500 mg) by mouth every 6 hours as needed for muscle spasms. Qty: 20 tablet, Refills: 0 ??Patient did not fill this prescription pantoprazole 40 MG EC tablet Take 1 tablet (40 mg) by mouth daily on an empty stomach. Qty: 30 tablet, Refills: 0 ?? polyethylene glycol 3350 17 GM/SCOOP oral powder Take 17 g by mouth daily as needed for constipation. Fill cap with powder to the 17 gram donnie and dissolve in 4 to 8 ounces of water. Qty: 225 g, Refills: 0 ??Patient did not fill this prescription potassium chloride ER 20 MEQ ER tablet Take 2 tablets (40 mEq) by mouth 2 times a day for 7 days, THEN 2 tablets (40 mEq) daily for 15 days. While taking furosemide (lasix). Qty: 58 tablet, Refills: 0 ?? multivitamin iron-folic acid 27-1 mg tablet Take 1 tablet by mouth daily. Qty: 30 tablet, Refills: 0 ? CONTINUE these medications which have CHANGED ?? Details apixaban 5 MG tablet Take 0.5 tablets (2.5 mg) by mouth 2 times a day. ?? furosemide 20 MG tablet Take 40mg (2 tablets) twice a day for 7 days (11/22- 11/28) then 40mg (2 tablets) daily until follow up visit with cardiac surgery clinic. ? CONTINUE these medications which have NOT CHANGED ?? Details albuterol HFA 108 (90 Base) MCG/ACT inhaler Inhale 2 puffs by mouth as needed. ?? colchicine 0.6 MG tablet Take 1 tablet (0.6 mg) by mouth daily as needed (As needed for gout flareups.). ?? metoprolol succinate ER 50 MG 24 hr tablet Take 1 tablet (50 mg) by mouth daily. ?? rosuvastatin 5 MG tablet Take 1 tablet (5 mg) by mouth at bedtime. Qty: 30 tablet, Refills: 11 ? STOP taking these medications ? multivitamin with minerals tablet Comments: Reason for Stopping: ? mupirocin 2 % ointment Comments: Reason for Stopping: ? naproxen 500 MG tablet Comments: Reason for Stopping: ? nitrofurantoin SR monohydrate/macrocrystals 100 MG capsule Comments: Reason for Stopping: ? Nature of Call: Post dc call day 1 Assessment: VS: HR 81 BP 141/65 (before medications) Temp 97.6 No shortness of breath, edema, palpitations. Patient complains of feeling nauseated and lightheadedafter taking pantoprazole this morning. He has not taken any of his other medications. He is wondering why he needs to take this medication. Pain: Patient has not wanted to take anything for incisional pain since discharge. He is complaining of pain on one side and his has noted some scratches there. She was advised to keep an eye onthis and let us know if it does not resolve. Incision: CDI, no s/s infection, washing daily with soap and water Activity: Following sternal precautions, will encourage him to walk 3-4 times daily, tolerating well. Sleeping well, had to get up several times to go to the bathroom during the night. GI: Some Nausea this morning. No constipation or diarrhea. Taking stool softeners, eating fiber. Appetite low, eating protein. Plan: Pt will continue to follow care per CTS guidelines. Pt will call per discharge instructions. F/u apt w/ Cardiac Surgery [facility] on 12/11/22 at 4:30 PM Additional Follow up on 12/11/22 Reyna Denis MD [facility] Cardiology [address], [facility] 300 [facility] [address] [place] [address] Preferred cardiac rehab location: [facility] documented in this encounter Plan of Treatment Scheduled Orders Name Type Priority Associated Diagnoses Orde r Schedule BASIC METABOLIC PANEL [BMP] Lab Routine S/P MVR (mitral valve replacement) Expected: 11/29/2022 (Approximate), Expires: 12/29/2023 Scheduled Referrals Name Type Priority Associated Diagnoses Orde r Schedule REFERRAL TO CARDIAC REHAB Referral Routine S/P MVR (mitral valve replacement) Expected: 11/23/2022, Expires: 11/24/2023 documented as of this encounter Medical Devices Implanted Type Area Model Builder Display Device Identifier Shelf Expiration Date Model / Serial / Lot Ring Annuloplasty Tricuspid Allyn-Edw ards Physio 28mm - [id number] - [id number] Implanted:Qty: 1 on 11/16/2022 by Jony Hawkins MD at [facility] IN[facility]IENT Annuloplasty Device N/A: Heart [employer] 07/30/2027 [id number] / [id number] / Lead Pacing Myopore 35cm [id number] - [id number] - [id number] Implanted:Qty: 1 on 11/16/2022 by Jony Hawkins MD at [facility] INPATIENT Lead N/A: Heart [employer] 03/22/2025 [id number] / [id number] / Pacemaker Mri Single Chamber Assurity Sr-Rf - [id number] - [id number] Implanted:Qty: 1 on 11/16/2022 by Jony Hawkins MD at [facility] INPATIENT Pacemaker N/A: Chest [employer] 05/21/2023 [id number] / [id number] / Valve Mitral [id number] Epic Plus 20mm 31mm 28.4mm - [id number] - [id number] Implanted:Qty: 1 on 11/16/2022 by Jony Hawkins MD at [facility] INPATIENT Prosthetic Valve N/A: Heart [employer] [id number] 01/10/2026 [id number] / [id number] / documented as of this encounter Visit Diagnoses Diagnosis S/P MVR (mitral valve replacement)- Primary Heart valve replaced by other means documented in this encounter Insurance Payer Benefit Plan / Group Subscriber ID Effective Dates Phone Address Type [facility] [employer] MEDIC[facility] [id number] 2022-Pres ent [address] [place], [place] [address] [place] [address] documented as of this encounter Advance Directives For more information, please contact: [phone] Latest Code Status on File Code Status Date Activated Date Inactivated Comments Full Code 11/16/2022 3:28 PM 11/22/2022 9:38 PM Care Teams Licensed Investment Sales Assistant Relationship Specialty Start Date End Date Fausto Looney MD [facility] [address] [place] [address] [address] [place], [place] [id number] PCP - General Internal Medicine 11/16/22 Reyna Denis MD [facility] Cardiology [address], [facility] 300 [place], [place] [phone] Cardiology 11/13/22 documented as of this encounter
== END ==
PROVIDERS: PCP Internal Medicine; Referring Provider Urology; Visit Provider Urology
DX: C61 Malignant neoplasm of prostate (principal); K57.90 Diverticulosis of intestine, part unspecified, without perforation or abscess without bleeding; I25.10 Atherosclerotic heart disease of native coronary artery without angina pectoris; I70.0 Atherosclerosis of aorta; K40.20 Bilateral inguinal hernia, without obstruction or gangrene, not specified as recurrent
CPT/HCPCS: 74177; 78306; A9503; Q9967

== ENCOUNTER → 2023-08-09 08:12 | Outpatient (CLI) | payer OTHER, SELFPAY ==
[2023-08-09 09:02] LABS: Hematocrit 41.2 % (41-53); Hemoglobin 13.8 g/dL (13.5-17.5); Mean Corpuscular HGB Conc 33.4 % (30-36); Mean Corpuscular Hemoglobin 31.2 PG (26-34); Mean Corpuscular Volume 93.4 fL (80-100); Platelet Count 140 X10^3/uL (150-400); Red Blood Cell Count 4.41 X10^6/uL (4.5-5.9); Red Cell Distribution Width 13.4 % (11.6-14.8); White Blood Cell Count 6.5 X10^3/uL (4.5-11.0)
[2023-08-09 09:20] LABS: BUN Creatinine Ratio 26.7 (6-22); Blood Urea Nitrogen 28 mg/dL (9-20); Calcium 10.1 mg/dL (8.4-10.2); Carbon Dioxide 26 mmol/L (22-32); Chloride 104 mmol/L (98-107); Cholesterol 155 mg/dL (140-199); Estimated Glomerular Filt Rate > 60 mL/min (>60); Glucose 103 mg/dL (80-110); HDL Cholesterol 46 mg/dL (40-60); HEMOLYSIS < 15 (0-50); LDL Cholesterol Calculated 91 mg/dL (<100); Potassium 4.4 mmol/L (3.4-5.1); Sodium 140 mmol/L (137-145); Triglycerides 92 mg/dL (35-150)
== END ==
LOC: LAB 08:13
PROVIDERS: PCP Internal Medicine; Referring Provider Internal Medicine Cardiovascular Disease; Visit Provider Internal Medicine Cardiovascular Disease
DX: E78.5 Hyperlipidemia, unspecified (principal); I48.19 Other persistent atrial fibrillation
CPT/HCPCS: 36415; 80048; 80061; 85027

== ENCOUNTER → 2023-11-04 11:07 | Outpatient (CLI) | payer OTHER, SELFPAY ==
[2023-11-04 14:04] LABS: Prostate Specific Antigen 7.34 ng/mL (0.10-4.00)
== END ==
LOC: LAB 11:08
PROVIDERS: PCP Internal Medicine; Referring Provider Urology; Visit Provider Urology
DX: C61 Malignant neoplasm of prostate (principal)
CPT/HCPCS: 36415; 84153

== ENCOUNTER → 2023-11-07 11:01 | Outpatient (CLI) | payer OTHER, SELFPAY | PROVIDERS: PCP Internal Medicine; Visit Provider Urology | DX: R39.9 Unspecified symptoms and signs involving the genitourinary system (principal) | CPT/HCPCS: 87086 ==

== ENCOUNTER → 2024-02-11 11:50 | Outpatient (CLI) | payer OTHER, SELFPAY ==
[2024-02-11 14:21] LABS: Prostate Specific Antigen 3.35 ng/mL (0.10-4.00)
== END ==
PROVIDERS: PCP Internal Medicine; Referring Provider Urology; Visit Provider Urology
DX: C61 Malignant neoplasm of prostate (principal)
CPT/HCPCS: 36415; 84153

== ENCOUNTER → 2024-05-06 10:47 | Outpatient (CLI) | payer OTHER, SELFPAY ==
[2024-05-06 12:59] LABS: Prostate Specific Antigen 1.88 ng/mL (0.10-4.00)
== END ==
PROVIDERS: PCP Internal Medicine; Referring Provider Urology; Visit Provider Urology
DX: C61 Malignant neoplasm of prostate (principal)
CPT/HCPCS: 36415; 84153

== ENCOUNTER → 2024-07-24 15:22 | Outpatient (CLI) | payer MEDICARE, SELFPAY ==
[2024-07-24 17:03] LABS: Prostate Specific Antigen 1.49 ng/mL (0.10-4.00)
== END ==
PROVIDERS: PCP Internal Medicine; Referring Provider Urology; Visit Provider Urology
DX: C61 Malignant neoplasm of prostate (principal)
CPT/HCPCS: 36415; 84153

== ENCOUNTER → 2024-07-25 08:12 | Outpatient (CLI) | payer MEDICARE, SELFPAY ==
[2024-07-25 09:24] LABS: Add Manual Diff / Slide Review NO; Basophils Absolute Auto 0 /uL (0-100); Basophils Percent Auto 0.4 % (0-2); Eosinophils Absolute Auto 200 /uL (0-450); Eosinophils Percent Auto 3.5 % (2-4); Hematocrit 42.3 % (41-53); Hemoglobin 14.2 g/dL (13.5-17.5); Lymphocytes Absolute Auto 1000 /uL (1100-4500); Lymphocytes Percent Auto 15.1 % (25-40); Mean Corpuscular HGB Conc 33.5 % (30-36); Mean Corpuscular Hemoglobin 32.8 PG (26-34); Mean Corpuscular Volume 97.9 fL (80-100); Monocytes Absolute Auto 800 /uL (0-900); Monocytes Percent Auto 12.1 % (3-14); Neutrophils Absolute Auto 4600 /uL (1500-7000); Neutrophils Percent Auto 68.9 % (50-75); Platelet Count 136 X10^3/uL (150-400); Red Blood Cell Count 4.32 X10^6/uL (4.5-5.9); Red Cell Distribution Width 13.2 % (11.6-14.8); White Blood Cell Count 6.7 X10^3/uL (4.5-11.0)
[2024-07-25 09:50] LABS: Alanine Aminotransferase 20 IU/L (<50); Albumin 3.9 g/dL (3.5-5.0); Albumin Globulin Ratio 1.4 (1.0-2.8); Alkaline Phosphatase 44 U/L (38-126); Aspartate Aminotransferase 26 IU/L (17-59); BUN Creatinine Ratio 26.7 (6-22); Bilirubin Total 0.8 mg/dL (0.2-1.3); Blood Urea Nitrogen 28 mg/dL (9-20); Calcium 9.5 mg/dL (8.4-10.2); Carbon Dioxide 26 mmol/L (22-32); Chloride 108 mmol/L (98-107); Cholesterol 170 mg/dL (140-199); Estimated Glomerular Filt Rate > 60 mL/min (>60); Globulin 2.8 g/dL (1.7-4.1); Glucose 100 mg/dL (80-110); HDL Cholesterol 52 mg/dL (40-60); HEMOLYSIS < 15 (0-50); LDL Cholesterol Calculated 100 mg/dL (<100); Potassium 4.4 mmol/L (3.4-5.1); Sodium 139 mmol/L (137-145); Total Protein 6.7 g/dL (6.3-8.2); Triglycerides 89 mg/dL (35-150)
== END ==
LOC: LAB 08:13
PROVIDERS: PCP Internal Medicine; Referring Provider Internal Medicine; Visit Provider Internal Medicine
DX: I10 Essential (primary) hypertension (principal); E78.2 Mixed hyperlipidemia; I48.91 Unspecified atrial fibrillation; C61 Malignant neoplasm of prostate
CPT/HCPCS: 36415; 80053; 80061; 85025

== ENCOUNTER → 2024-08-24 07:05 | Outpatient (CLI) | payer MEDICARE, SELFPAY ==
[2024-08-24 07:44] LABS: Hematocrit 42.3 % (41-53); Hemoglobin 14.3 g/dL (13.5-17.5); Mean Corpuscular HGB Conc 33.7 % (30-36); Mean Corpuscular Hemoglobin 32.6 PG (26-34); Mean Corpuscular Volume 96.8 fL (80-100); Platelet Count 153 X10^3/uL (150-400); Red Blood Cell Count 4.37 X10^6/uL (4.5-5.9); White Blood Cell Count 6.2 X10^3/uL (4.5-11.0)
[2024-08-24 08:08] LABS: BUN Creatinine Ratio 22.8 (6-22); Blood Urea Nitrogen 28 mg/dL (9-20); Calcium 9.7 mg/dL (8.4-10.2); Carbon Dioxide 25 mmol/L (22-32); Chloride 108 mmol/L (98-107); Cholesterol 185 mg/dL (140-199); Estimated Glomerular Filt Rate 59 mL/min (>60); Glucose 102 mg/dL (80-110); HDL Cholesterol 48 mg/dL (40-60); HEMOLYSIS < 15 (0-50); LDL Cholesterol Calculated 116 mg/dL (<100); Potassium 4.2 mmol/L (3.4-5.1); Sodium 140 mmol/L (137-145); Triglycerides 103 mg/dL (35-150)
== END ==
PROVIDERS: PCP Internal Medicine; Referring Provider Internal Medicine Cardiovascular Disease; Visit Provider Internal Medicine Cardiovascular Disease
DX: E78.5 Hyperlipidemia, unspecified (principal); I48.11 Longstanding persistent atrial fibrillation
CPT/HCPCS: 36415; 80048; 80061; 85027

== ENCOUNTER → 2024-10-06 14:33 | Outpatient (CLI) | payer MEDICARE, SELFPAY ==
[2024-10-07 12:39] LABS: Fecal Immunochemical Test Positive (Negative)
== END ==
PROVIDERS: PCP Internal Medicine; Referring Provider Internal Medicine; Visit Provider Internal Medicine
DX: Z12.11 Encounter for screening for malignant neoplasm of colon (principal)
CPT/HCPCS: 82274

== ENCOUNTER → 2024-10-19 13:54 | Outpatient (CLI) | payer MEDICARE, SELFPAY ==
[2024-10-19 15:37] LABS: Prostate Specific Antigen 1.82 ng/mL (0.10-4.00)
== END ==
PROVIDERS: PCP Internal Medicine; Referring Provider Internal Medicine; Visit Provider Urology
DX: C61 Malignant neoplasm of prostate (principal)
CPT/HCPCS: 36415; 84153

== ENCOUNTER 2024-11-03 11:02 | Day surgery (SDC) | payer MEDICARE, SELFPAY ==
--- NOTE | 2024-11-03 | PATH_ITS ---
[facility] Accession Number: [id number] No. of containers..02 Tissue . 01 Material submitted: . PART A: colon - TRANSVERSE COLON POLYP PART B: rectum - RECTAL POLYP . 01 Diagnosis: Part A: TRANSVERSE COLON POLYP: Tubular adenoma. . Part B: RECTAL POLYP: Tubular adenoma. STO 11/05/2024 1603 Local . 01 Electronically signed: . Jose M Melchor MD, Pathologist NPI- [id number] . 01 Gross description: . Part A: TRANSVERSE COLON POLYP: Received in formalin is 1 fragment(s) of mix, soft tissue measuring 0.3 x 0.3 x 0.2 cm submitted entirely in 1 cassette(s) . Part B: RECTAL POLYP: Received in formalin is 1 fragment of mix soft tissue measuring 0.8 x 0.6 x 0.5 cm. Specimen is sectioned and submitted in its entirety in 1 cassette. /PAIGE 11/05/2024 1603 Local . 01 Pathologist provided ICD-10: D12.3, D12.8 . 01 CPT . 163569, 339720 Specimen Comment: A courtesy copy of this report has been sent to [facility] Pathology Performed at: [address], [place], [place] [id number] MD Jose M Melchor MD Phone: [phone]
[2024-11-03 11:29] VITALS: BP 193/74; PULSE 68; RESP 16; TEMP 36.1; O2SAT 99
[2024-11-03] MEDS: LACTATED RINGERS 1,000 ML 42 ML IV (11:39)
--- NOTE | 2024-11-03 12:20 | PM.HP.IH.1 ---
History of Present Illness History of Present Illness Date Patient Seen: 11/03/24 Time Patient Seen: 12:21 Chief complaint: Colonoscopy Narrative: 79-year-old white male with a positive fit test and bleeding internal hemorrhoids. [facility] Medical History BPH w urinary obs/LUTS History of radiation therapy Current use of long-term anticoagulation Nonrheumatic mitral valve regurgitation (09/19/22) Coronary artery disease involving tolowa dee-ni' coronary artery of tolowa dee-ni' heart without angina pectoris (09/19/22) Elevated PSA Atypical atrial flutter Prostate cancer Mitral regurgitation History of urinary tract infection Atrial fibrillation Essential hypertension Microscopic hematuria Lower urinary tract symptoms Vision disorder Hearing loss Shoulder pain Erectile dysfunction Chronic gout Primary osteoarthritis involving multiple joints (07/08/15) Mixed hyperlipidemia (07/08/15) Surgical History S/P placement of cardiac pacemaker (11/16/22) S/P left atrial appendage ligation (11/16/22) S/P placement of cardiac pacemaker (11/16/22) S/P tricuspid valve repair (11/16/22) S/P mitral valve replacement (11/16/22) S/P Maze operation for atrial fibrillation (11/16/22) S/P tonsillectomy (~1974) Family History Father Stroke Mother Diabetes mellitus Urinary tract infection Social History marital status: household members: spouse lives independently: Yes occupational status: previously employed Smoking Status: Never smoker alcohol intake: former substance use type: does not use Meds Home Medications and Allergies Home Medications Medication Instructions Recorded Confirmed Type multivitamin 1 tab PO DAILY 08/28/21 11/03/24 History apixaban 5 mg tablet (Eliquis) 5 mg PO BID 07/04/22 11/03/24 History rosuvastatin 5 mg tablet 5 mg PO DAILY 03/18/23 11/03/24 History diclofenac sodium 1 % topical gel 2 g topical TID PRN Chest wall pain 10/22/23 11/03/24 History metoprolol succinate 50 mg 25 mg PO BID 10/22/23 11/03/24 History tablet,extended release 24 hr colchicine 0.6 mg tablet 0.6 mg PO DAILY #30 tabs 08/20/24 11/03/24 Rx hydrocortisone acetate 25 mg 25 mg VT BID #12 ea 08/20/24 11/03/24 Rx rectal suppository (Anusol-HC) sodium,potassium,mag sulfates 17.5 See Rx Instructions PO .COMPLEX 10/26/24 Rx gram-3.13 gram-1.6 gram oral soln #354 mL (Suprep Bowel Prep Kit) ezetimibe 10 mg tablet 10 mg PO DAILY 11/03/24 11/03/24 History Allergies Allergy/AdvReac Type Severity Reaction Status Date / Time monosodium glutamate Allergy Unknown Verified 11/03/24 11:26 [MONOSODIUM GLUTAMATE] Sulfa (Sulfonamide Allergy Unknown Verified 11/03/24 11:26 Antibiotics) [SULFA (SULFONAMIDE ANTIBIOTICS)] Wpfonej-CCL-WfJ Reductase AdvReac Intermediate body pain Verified 11/03/24 11:26 Inhibitor hydrocodone [HYDROCODONE] AdvReac Mild N/V Verified 11/03/24 11:26 pollen extracts AdvReac Unknown Verified 11/03/24 11:26 Review of Systems Review of Systems ROS: Yes All systems reviewed with the patient and are negative except as otherwise documented Exam Vital Signs (past 8 hours): - 11/03/24 11:29 Temperature 97.0 F L Pulse Rate 68 Respiratory Rate 16 Blood Pressure 193/74 H Pulse Oximetry 99 Oxygen Delivery Method Room Air Oxygen Delivery Method Room Air Narrative Exam Narrative: Gen: NAD, sitting comfortably in bed, appears well HEENT: Sclera are anicteric, head is normocephalic and atraumatic, trachea is midline. CV: RRR, no JVD Resp: clear to auscultation bilaterally, equal chest wall movement bilaterally Abd: soft, nontender, normoactive bowel sounds Ext: no edema, full range of motion Neuro: Cranial nerves II-XII grossly intact, no focal deficits Skin: No erythema or ecchymosis Assessment & Plan Assessment and plan (1) Positive FIT (fecal immunochemical test): Status: Acute (2) Bleeding internal hemorrhoids: Status: Acute (3) Current use of long-term anticoagulation: Status: Chronic Assessment & Plan narrative: Patient presents for colonoscopy and banding of internal hemorrhoids Risks, benefits, alternatives to colonoscopy explained, including but not limited to bowel perforation or other serious complication requiring surgery at less than 1 in 5000 colonoscopies, abdominal pain, cramping or bleeding and less than 1% of colonoscopies, and the chances that we find a diagnosis that would require further intervention of about 2%. Patient agrees to proceed. Patient was to hold blood thinners for 2 days prior and 5 days after banding. Time-Based Coding :: [TOTAL MINUTES] spent with patient and on the chart (including review of chart, obtaining history, exam, reviewing outside data, placing orders, documenting exam and treatment plan, and counseling patient) on [DATE]. [employer] Head Document charge(s): No
--- NOTE | 2024-11-03 12:44 | PM.OP.COLON ---
Operative Date/Time/Diagnoses Date of procedure: 11/03/24 Time of procedure: 12:44 Pre-op diagnosis: Positive fit, bleeding internal hemorrhoids, long-term anticoagulant use Post-op diagnosis: same Procedure & Clinicians Study performed: 1. Colonoscopy with hot snare polypectomy of transverse colon polyp and rectal polyp 2. Anoscopy with rubber-band ligation of internal hemorrhoid, left middle quadrant Same procedure as scheduled: Yes Indications: Positive fit, blood per rectum Surgeon: Daryl Reed Procedure Notes SCOAP/Timeout: Perform Procedure in detail: Time-out was performed. Mac was induced. Patient was placed in left lateral decubitus position. The perineum was inspected without any gross abnormality. Lubricated pediatric colonoscope was inserted and advanced to the cecum. The terminal ileum was intubated. The colonoscope was withdrawn slowly inspecting the circumference of the colon. Small polyp was noted in the transverse colon, removed with hot snare polypectomy and retrieved. A greater than 10 mm polyp was noted in the rectum removed with hot snare polypectomy and retrieved. Very small polyps may have been missed, prep quality was adequate. Retroflexed view of the rectum showed medium, prolapsed nonbleeding internal hemorrhoids. Anoscope was then inserted and 2 rubber bands were applied to the left middle quadrant hemorrhoid using a suctioned and ligated. The scope was withdrawn the patient was taken to PACU in good condition. Scope withdrawal time: 11 Findings: divertiulosis, internal hemorrhoids and polyp(s) Specimen(s): other (1. Transverse colon polyp 2. Rectal polyp) Complications: none Post-procedure Recommendations: Colonoscopy in 3 years Plan for aftercare: Resume your anticoagulation in 5 days if you have no bleeding Follow up: as needed Disposition: PACU
[2024-11-03 12:48] VITALS: BP 119/57; PULSE 56; RESP 22; TEMP 37.2; O2SAT 99
[2024-11-03 12:55] VITALS: BP 127/73; PULSE 59; RESP 15; O2SAT 99
[2024-11-03 12:57] VITALS: BP 139/63; PULSE 57; RESP 15; TEMP 36.3; O2SAT 98
== END 2024-11-03 13:20 | disposition home or self-care (01) ==
PROVIDERS: PCP Internal Medicine; Referring Provider Surgery; Visit Provider Surgery
PROC: 0DJD8ZZ Inspection of Lower Intestinal Tract, Via Natural or Artificial Opening Endoscopic (ICD-10-PCS; CPT 45378; principal; 2024-11-03 12:00)
DX: Z12.11 Encounter for screening for malignant neoplasm of colon (principal); R19.5 Other fecal abnormalities; K64.8 Other hemorrhoids; Z79.01 Long term (current) use of anticoagulants; D12.3 Benign neoplasm of transverse colon; D12.8 Benign neoplasm of rectum
CPT/HCPCS: 45385; 46221; 45380; J2704

== ENCOUNTER → 2024-12-31 12:24 | Outpatient (CLI) | payer MEDICARE, SELFPAY | PROVIDERS: PCP Internal Medicine; Referring Provider Radiology Radiation Oncology; Visit Provider Radiology Radiation Oncology | DX: C61 Malignant neoplasm of prostate (principal) | CPT/HCPCS: 36415; 84153 ==

== ENCOUNTER → 2025-01-08 13:50 | Outpatient (CLI) | payer MEDICARE, SELFPAY | PROVIDERS: PCP Internal Medicine; Referring Provider Internal Medicine; Visit Provider Internal Medicine | DX: R30.0 Dysuria (principal) | CPT/HCPCS: 87086 ==

== ENCOUNTER → 2025-04-28 13:35 | Outpatient (CLI) | payer MEDICARE, SELFPAY ==
[2025-04-28 14:54] LABS: Prostate Specific Antigen 0.966 ng/mL (0.10-4.00)
== END ==
PROVIDERS: PCP Internal Medicine; Referring Provider Urology; Visit Provider Urology
DX: C61 Malignant neoplasm of prostate (principal)
CPT/HCPCS: 36415; 84153

== ENCOUNTER → 2025-05-25 13:45 | Outpatient (CLI) | payer MEDICARE, SELFPAY ==
--- NOTE | 2025-05-25 13:46 | DI.US.S_ITS ---
PROCEDURE: US SCROTUM INDICATIONS: 79 y/o M w/ testicular pain, please eval TECHNIQUE: Real-time scanning was performed of the scrotum and testicles, with image documentation. Color and pulse Doppler interrogation was performed of both testicles. COMPARISON: None. FINDINGS: Bilateral inguinal hernias are noted. On the right hernia contents measuring up to approximately 5.8 x 2.5 x 1.9 cm with sagittal defect 1.2 cm, transverse defect 1.7 cm. Some movement with Valsalva, able to compress out. Left inguinal hernia stationary contents approximately 5.1 x 3.4 x 1.3 cm without movement with Valsalva and unable to compress out. Right: Right testis measures approximately 2.5 x 1.6 x 1.1 cm, and heterogeneous in echotexture. Epididymis is normal in overall size with a 6 millimeter right epididymal head cyst. No hydrocele or varicoceles. Overlying scrotal skin is normal in thickness. Left: [id number] left varicocele. Left testis measures approximately 3.3 x 1.9 x 1.6 cm, and heterogeneous in echotexture. Epididymis is normal in overall size and morphology. No hydrocele. Overlying scrotal skin is normal in thickness. Doppler: Color and pulse Doppler demonstrate normal and symmetric arterial flow in both testes. IMPRESSION: Mild to moderate left varicocele. Bilateral inguinal hernias as discussed above non reducible on the left. Follow-up suggested. If symptoms persist or worsen, CT could be performed. Dictated by: Anatoliy Ny M.D. on 05/25/2025 at 16:47 Approved by: Anatoliy Ny M.D. on 05/25/2025 at 16:55
== END ==
LOC: US 13:46
PROVIDERS: PCP Internal Medicine; Referring Provider Urology; Visit Provider Urology
DX: I86.1 Scrotal varices (principal); N50.819 Testicular pain, unspecified; K40.20 Bilateral inguinal hernia, without obstruction or gangrene, not specified as recurrent
CPT/HCPCS: 76870

== ENCOUNTER → 2025-07-09 11:08 | Outpatient (CLI) | payer MEDICARE, SELFPAY ==
[2025-07-09 12:58] LABS: Prostate Specific Antigen 0.684 ng/mL (0.10-4.00)
== END ==
PROVIDERS: Urology; PCP Internal Medicine; Referring Provider Radiology Radiation Oncology; Visit Provider Radiology Radiation Oncology
DX: C61 Malignant neoplasm of prostate (principal)
CPT/HCPCS: 36415; 84153